=== PATIENT | male | born 1955 | race Caucasian/White ===

== ENCOUNTER → 2018-09-04 08:52 | Outpatient (CLI) | payer BC, SELFPAY ==
--- NOTE | 2018-09-04 08:55 | CA_ITS ---
PROCEDURE: 2-D M-mode and color Doppler study INDICATIONS FOR THE TEST: Chest pain COPD Heart Murmur Tobacco Smoking Palpitations FatigueX Syncope Edema HypertensionXDiabetes Mellitus Rheumatic Fever SOBXDOEXObesityXHyperlipidemia Family History HD Additional History EXERCISE INDUCED V TACH PATIENT INFORMATION HEIGHT: 71 WEIGHT:231 GENDER: Male B/P:150/85 2-D/M-MODE INTERPRETATION: 2-D MEASUREMENTS OBSERVED VALUES IN CMS Right Ventricular Dimension (RVDd) 2.7 Interventricular Septum (Thickness)(IVsd) 1.2 Left Ventricular Internal Dimensions(LVIDd) 5.6 Left Ventricular Posterior Wall (Thickness)(LVPWd) 1.0 Aortic Root 3.1 Aortic Cusp Separation 1.9 Left Atrial Dimensions (LAD) 3.4 2D 1. Left atrium is mildly enlarged, left ventricle is normal size, mild concentric left ventricular hypertrophy, visually estimated ejection fraction 55% with no regional wall motion abnormality. 2. The right atrium and right ventricle are enlarged with normal contractility. 3. The aortic, mitral and tricuspid valvular grossly normal. 4. The pulmonic valve is poorly visualized. 5. No significant pericardial effusion noted. DOPPLER INTERROGATION: Doppler interrogation of the aortic, mitral and tricuspid valvular presence of mild mitral and tricuspid regurgitation, tricuspid regurgitation jet velocity is inadequate for calculation of the right ventricular systolic pressure, grade 1 diastolic dysfunction seen without tissue Doppler evidence of raised left atrial pressure. CONCLUSION: 1. Mildly left atrium, normal left ventricular size, mild concentric left ventricular hypertrophy, visually estimated ejection fraction 55% with no regional wall motion abnormality, grade 1 diastolic dysfunction seen without tissue Doppler evidence of raised left atrial pressure. 2. Mildly enlarged right ventricle with normal contractility. 3. Mild mitral and tricuspid regurgitation 4. No significant pericardial effusion noted.
== END ==
PROVIDERS: PCP Family Medicine; Visit Provider Internal Medicine Cardiovascular Disease
DX: I47.2 Ventricular tachycardia (principal)
CPT/HCPCS: 93306

== ENCOUNTER → 2023-01-04 10:38 | Outpatient (CLI) | payer MEDICARE, SELFPAY ==
--- NOTE | 2023-01-04 10:43 | CA_ITS ---
FINAL REPORT TECHNIQUE: Real-time imaging was performed of the extracranial carotid arteries in transverse and longitudinal planes with color duplex evaluation of blood flow velocity. Spectral analysis was performed. The cervicovertebral arteries were also examined. Stenosis evaluation based on elevated velocity criteria. CLINICAL HISTORY: .memory loss FINDINGS: FINDINGS: RIGHT CAROTID: CCA PSV: 75 cm/sec ICA PSV: 69 cm/sec ECA PSV: 95 cm/sec ICA/CCA systolic flow velocity ratio: 0.88-1.14 No appreciable atherosclerotic plaque is noted. Narrowing is classified in the less than 50 % category. LEFT CAROTID: CCA PSV: 83 cm/sec ICA PSV: 88 cm/sec ECA PSV: 101 cm/sec ICA/CCA systolic flow velocity ratio: 0.97-1.27 No appreciable atherosclerotic plaque is noted. Narrowing is classified in the less than 50 % category. VERTEBRALS: Vertebral arteries are patent with antegrade flow and expected spectral waveforms. IMPRESSION: Less than 50% bilateral carotid artery stenosis. Patent vertebral arteries. Reviewed, Interpreted and Dictated by Carmela Lee MD Transcribed by Sissy Neves Authenticated and [facility]
== END ==
PROVIDERS: PCP Family Medicine; Visit Provider Family Medicine
DX: R09.89 Other specified symptoms and signs involving the circulatory and respiratory systems (principal); R41.3 Other amnesia
CPT/HCPCS: 93880

== ENCOUNTER 2023-05-10 08:03 | Day surgery (SDC) | payer MEDICARE, SELFPAY ==
[2023-05-09 09:35] VITALS: BMI 31.5
[2023-05-10] VITALS (10 sets, daily range): BP systolic 124–149; BP diastolic 69–89; PULSE 48–89; RESP 16–19; TEMP 36.2–36.6; O2SAT 97–100
== END 2023-05-10 10:45 | disposition home or self-care (01) ==
PROVIDERS: PCP Family Medicine; Visit Provider Ophthalmology
DX: H25.812 Combined forms of age-related cataract, left eye (principal)
CPT/HCPCS: 66984; V2632

== ENCOUNTER 2023-05-24 07:25 | Day surgery (SDC) | payer MEDICARE, SELFPAY ==
[2023-05-17 14:03] VITALS: BMI 31.5
[2023-05-24] VITALS (8 sets, daily range): BP systolic 132–162; BP diastolic 75–99; PULSE 55–60; RESP 17–18; TEMP 36.2–36.7; O2SAT 97–100
== END 2023-05-24 09:25 | disposition home or self-care (01) ==
PROVIDERS: PCP Family Medicine; Visit Provider Ophthalmology
PROC: (CPT 66984; principal; 2023-05-24 09:00)
DX: H25.811 Combined forms of age-related cataract, right eye (principal)
CPT/HCPCS: 66984; V2632

== ENCOUNTER 2024-07-21 08:24 | Emergency (ER) | payer MEDICARE, SELFPAY ==
[2024-07-21 09:00] VITALS: BP 141/92; PULSE 81; RESP 19; TEMP 36.8; O2SAT 100; BMI 30.2
--- NOTE | 2024-07-21 09:34 | EXP.UTC ---
Discharge Plan Prescriptions Prescriptions: No Action lisinopril 40 mg tablet 40 mg PO DAILY 30 Days Qty: 30 citalopram 10 mg tablet 10 mg PO DAILY 30 Days Qty: 30 atorvastatin [Lipitor] 40 mg tablet 40 mg PO DAILY aspirin [Adult Low Dose Aspirin] 81 mg tablet,delayed release (DR/EC) 81 mg PO DAILY metoprolol succinate 25 mg tablet extended release 24 hr 25 mg PO DAILY Rx Instructions: Needs follow up appt for refills Referrals Follow up/Referrals: Carmela Corado MD [Primary Care Provider] - See instructions Activity Restrictions/Add. Instructions Additional Instructions/Restrictions: No sign of a bacterial infection. Likely viral. Viruses can take 7-14 days to run their course. Nasal saline and bulb syringe or nose Loren to remove nasal drainage to help with nasal congestion. Hard to eat, drink, sleep with nasal congestion so important to keep this cleaned out. Monitor temp. Tylenol or Motrin as needed for pain or fever Encourage fluids, water, Gatorade, Powerade, Pedialyte if infant/toddler/child Warm salt water gargles Warm fluids Sore throat lozenges Sleep elevated Humidifier/vaporizer Follow-up immediately for new or worsening symptoms or no noticeable improvement over the next 48-72 hours. Clinical Impressions Clinical Impression: Upper respiratory infection, viral Instructions Patient Instructions: DI for Viral Upper Respiratory Infection -- Adult Print Language Print Language: Croatian Discharge ED Provider: Heri ([facility])[place] [facility] [place] General Stated complaint: congestion, chills, cough Mode of Arrival: Ambulatory Source of Information: Patient Limitations: No Limitations Time Seen by Provider: 07/21/24 09:33 Description of Symptoms (Recalled from Triage Doc. by RN): PATIENT C/O HEAD CONGESTION, SLIGHT COUGH, RUNNY NOSE, AND WATERY EYES SINCE YESTERDAY HEENT Symptoms (Recalled from RN notes): Yes Resp Symptoms (Recalled from RN notes): Yes Skin Symptoms (Recalled from RN notes): No MS Symptoms (Recalled from RN notes): No Functional Status (Recalled from RN notes): WNL History of Present Illness Provider Complaint: 69-year-old male presents for complaints of head congestion, slight cough, clear runny nose, and watery eyes since yesterday. Patient does not want swabbed Related Data Home Medications ?Medication ?Instructions ?Recorded ?Confirmed lisinopril 40 mg tablet 40 mg PO DAILY High Blood Pressure 08/04/18 05/24/23 30 days #30 tabs atorvastatin 40 mg tablet (Lipitor) 40 mg PO DAILY High Cholesterol 08/11/18 05/24/23 citalopram 10 mg tablet 10 mg PO DAILY High Blood Pressure 09/08/18 05/24/23 30 days #30 tabs aspirin 81 mg tablet,delayed 81 mg PO DAILY Blood Thinner 05/09/23 05/24/23 release (Adult Low Dose Aspirin) metoprolol succinate 25 mg 25 mg PO DAILY High Blood Pressure 05/09/23 05/24/23 tablet,extended release 24 hr Allergies Allergy/AdvReac Type Severity Reaction Status Date / Time No Known Allergies Allergy Verified 05/24/23 07:37 Worker's Comp Is this a Worker's Comp case?: No [facility] Disclaimer: The information contained in this section may have been updated after the patient was seen, as this information can be updated by other users. Medical History , [employer]) History of gastroesophageal reflux (GERD) History of cataract Hyperlipidemia Angina, class III SOB (shortness of breath) Daytime sleepiness Fatigue HTN (hypertension) Abnormal stress test Surgical History , [employer]) History of tonsillectomy Family History , [employer]) Colon cancer Family history of myocardial infarction Social History , [employer]) Smoking Status: Never smoker alcohol intake: current alcohol intake frequency: holidays/special occasions only substance use type: denies use current occupational status: retired household members: spouse current occupational exposures/hazards: No ROS Obtained: Yes Systems reviewed as appropriate & no additional complaints except as documented ENT Ears, Nose, Mouth, and Throat: Reports system reviewed and no additional complaints, except as documented and Reports as per HPI Respiratory Respiratory: Reports system reviewed and no additional complaints, except as documented and Reports as per HPI Physical Exam General General appearance: alert and in no apparent distress Eye Eye exam: Present normal appearance and PERRL ENT ENT exam: Present normal exam, normal oropharynx and TM's normal bilaterally Expanded ENT Exam Nose exam: Present sinus tenderness Throat exam: Present other (Postnasal drainage) Respiratory Respiratory exam: Present normal lung sounds bilaterally Cardiovascular Cardiovascular exam: Present regular rate and normal rhythm Neurological Exam Neurological exam: Present alert and oriented X3 Skin Skin exam: Present warm and intact Medical Decision Making Medical Records Medical records reviewed: Yes I reviewed the patient's medical records. Screening: Per USPSTF and CDC recommendations, given the prevalence of disease in our region, it is our hospital?s policy to screen for HIV and viral Hepatitis for all patients aged 18 and over and those with ongoing risk factors. Orverto Inquiry Pt receiving controlled substance: No Roverto was queried for this patient: No Vital Signs: 07/21/24 09:00 Temperature 98.2 F Temperature Source Oral Pulse Rate [Left Brachial] 81 Respiratory Rate 19 Blood Pressure [Left Arm] 141/92 H Blood Pressure Mean [Left Arm] 108 Blood Pressure Source [Left Arm] Automatic Cuff Blood Pressure Position [Left Arm] Sitting 02 Sat by Pulse Oximetry 100 Oxygen Delivery Method Room Air
[2024-07-21 09:53] VITALS: BP 141/92; PULSE 81; RESP 19; TEMP 36.8; O2SAT 100
[2024-07-21] MEDS: DEXAMETHASONE 4MG/ML 1ML VIAL 4 MG IM (09:53)
== END 2024-07-21 10:02 | disposition home or self-care (01) ==
LOC: UTC 08:26
PROVIDERS: Emergency Provider Nurse Practitioner Family; PCP Family Medicine
DX: J06.9 Acute upper respiratory infection, unspecified (principal)
CPT/HCPCS: 96372; 99213; G0381; J1100